=== PATIENT | male | born 1940 | race Caucasian/White ===

== ENCOUNTER 2017-09-26 09:12 | Emergency (ER) | payer OTHER ==
[~2017-09-26] VITALS: Ht 182.9 cm; Wt 86.2 kg
--- NOTE | 2017-09-26 09:30 | NUR ---
PT BIBRA FOR AUTO VS PEDS. DENIES KO, LOC. VSS. PT [id number]. REPORTS KNEE PAIN, NOTED SCRAPE. MD AT BS FOR EVAL. SAFETY AND COMFORT MEASURES PROVIDED. WILL MONITOR.
[2017-09-26] MEDS ORDERED: LEVO137T2 PO (09:48)
[2017-09-26] MEDS ORDERED: EZET10TA14 PO (09:48)
[2017-09-26] MEDS ORDERED: LITH300T3 PO (09:48)
[2017-09-26] MEDS ORDERED: ALPR0.255 PO ×2 (09:48)
[2017-09-26] MEDS ORDERED: PRAV10TA40 PO (09:48)
[2017-09-26] MEDS ORDERED: PROP40TA7 PO (09:48)
[2017-09-26] MEDS ORDERED: QUET25TA PO (09:48)
[2017-09-26] MEDS ORDERED: LAMO150T PO (09:48)
[2017-09-26] MEDS ORDERED: QUET300T2 PO (09:48)
--- NOTE | 2017-09-26 10:55 | NUR ---
AT AND SPOKE TO PT'S SON OVER THE PHONE TO DISCUSS TESTS DONE AND DISCHARGE INSTRUCTIONS TO PT.
--- NOTE | 2017-09-26 10:56 | NUR ---
Patient discharged to home in stable condition. Written and verbal after care instructions given. Patient verbalizes understanding of instruction.
[2017-09-26 11:14] VITALS: BP 125/81
== END 2017-09-26 11:15 | disposition home or self-care (01) ==
LOC: ER 09:19
DX: S80.02XA Contusion of left knee, initial encounter (principal); I10 Essential (primary) hypertension; V89.2XXA Person injured in unspecified motor-vehicle accident, traffic, initial encounter; Y93.01 Activity, walking, marching and hiking; Y92.410 Unspecified street and highway as the place of occurrence of the external cause; Y99.8 Other external cause status
CPT/HCPCS: 71045; 93005; 99284; A4606; Z7610

== ENCOUNTER 2020-08-19 02:27 | Inpatient (IN) | payer MEDICARE, BC ==
[~2020-08-19] VITALS: Ht 175.3 cm; Wt 90.7 kg
[2020-08-19] VITALS (58 sets, daily range): BP systolic 67–134; BP diastolic 26–89
[~2020-08-19 02:27] MED LIST: ALPR0.255 PO; EZET10TA6 PO; LAMO150T6 PO; LEVO137T2 PO; LITH300T3 PO; PRAV10TA40 PO; PROP40TA7 PO; QUET25TA PO; QUET300T2 PO
--- NOTE | 2020-08-19 02:37 | NUR ---
Patient came to the ER [id number] from home c/o SOB with 84% on RA at home. Patient was placed on a NRB at 15% O2 saturation upon arrival at 99%. Patient has hx of Spine and Lung cancer. Patient was somnolent upon arrival. Patient was given narcan 2mg IV and was more awake than usual. Patient is able to state name and is able to answer questions. Patient is connected to the athletic monitor. Patient is provided with call light that is within reach. Will continue to monitor the patient closely.
--- NOTE | 2020-08-19 02:43 | NUR ---
Blood is collected and sent to the lab.
[2020-08-19] MEDS ORDERED: DEUT6TAB PO (02:44)
[2020-08-19] MEDS ORDERED: SERT50TA PO (02:44)
[2020-08-19] MEDS ORDERED: QUET100T PO (02:44)
[2020-08-19] MEDS ORDERED: NALOXONE PREFILLED SYRINGE 2 MG/2 ML SYRINGE ONE (02:44)
[2020-08-19] MEDS ORDERED: CLON0.5T PO (02:44)
[2020-08-19] MEDS ORDERED: PROP80CA51 PO (02:44)
[2020-08-19] MEDS ORDERED: MIRT-119 PO (02:44)
--- NOTE | 2020-08-19 02:45 | NUR ---
X-ray at bedside.
[2020-08-19] MEDS ORDERED: ONDANSETRON HCL/PF 4 MG/2 ML VIAL ONE (02:46)
--- NOTE | 2020-08-19 02:50 | NUR ---
Covid swab rapid and PCR collected and sent to the lab.
[2020-08-19] MEDS ORDERED: ONDANSETRON HCL/PF 4 MG/2 ML VIAL IV ONE (03:00)
[2020-08-19] MEDS ORDERED: IV NS 0.9% 1,000 ML BAG IV ONE ×2 (03:00→04:30)
[2020-08-19] MEDS ORDERED: NALOXONE PREFILLED SYRINGE 2 MG/2 ML SYRINGE IV ONE (03:00)
[2020-08-19 03:09] LABS: EOSINOPHILS % (AUTO) 6.7 % (0.0-6.0); HEMATOCRIT 35 % (39-51); LYMPHOCYTES # (AUTO) 0.1 K/uL (0.8-4.8); LYMPHOCYTES % (AUTO) 42.8 % (20.0-44.0); MEAN CORPUSCULAR HGB CONC 35 g/dl (31.0-36.0); MEAN CORPUSCULAR VOLUME 94 fL (80-96); MONOCYTES # (AUTO) 0.1 K/uL (0.1-1.30); MONOCYTES % (AUTO) 37.2 % (2.0-12.0); NEUTROPHILS % (AUTO) 13.3 % (43.0-81.0); RED BLOOD CELL COUNT(AUTO) 3.66 MIL/uL (4.5-6.0)
[2020-08-19] MEDS ORDERED: IV NS 0.9% 250 ML IV ONE (03:12)
[2020-08-19] MEDS ORDERED: IOHEXOL-350 100 ML VIAL IV ONE (03:12)
[2020-08-19 03:15] LABS: CALCIUM, SERUM 8.6 mg/dL (8.5-10.1); CARBON DIOXIDE 25 mmol/L (21-32); CHLORIDE 99 mmol/L (98-107); CREATININE 2.2 mg/dL (0.6-1.3); GLUCOSE 105 mg/dL (74-106); SODIUM SERUM 131 mmol/L (136-145); UREA NITROGEN, BLOOD 45 mg/dL (7-18)
[2020-08-19 03:24] LABS: WHITE BLOOD COUNT (AUTO) 0.2 K/uL (4.3-11.0)
[2020-08-19 03:25] LABS: ALCOHOL, BLOOD 1 mg/dL (0-0)
[2020-08-19] MEDS ORDERED: CALCIUM CHLORIDE 1,000 MG/10 ML DISP.SYRIN ONE (03:25)
[2020-08-19] MEDS ORDERED: DEXTROSE 50%-WATER 50 ML DISP.SYRIN ONE ×2 (03:25→04:29)
[2020-08-19] MEDS ORDERED: SODIUM BICARBONATE SYR 50 MEQ/50 ML DISP.SYRIN ONE (03:25)
[2020-08-19 03:26] LABS: ACETAMINOPHEN < 0 ug/ml (10-30)
[2020-08-19] MEDS ORDERED: INSULIN REGULAR, HUMAN 100 UNIT/ML 10 ML VIAL ONE (03:26)
[2020-08-19 03:30] LABS: ALANINE AMINOTRANSFERASE 47 U/L (12-78); ALBUMIN 2.9 g/dL (3.4-5.0); ALKALINE PHOSPHATASE 65 U/L (46-116); ASPARTATE AMINOTRANSFERASE 40 U/L (15-37); BILIRUBIN,DIRECT 2.9 mg/dL (0.0-0.2); BILIRUBIN,TOTAL 3.7 mg/dL (0.2-1.0); TOTAL PROTEIN, SERUM 6.6 g/dL (6.4-8.2)
[2020-08-19] MEDS ORDERED: SODIUM BICARBONATE SYR 50 MEQ/50 ML DISP.SYRIN IV ONE (03:30)
[2020-08-19] MEDS ORDERED: INSULIN REGULAR, HUMAN 100 UNIT/ML 10 ML VIAL IV ONE (03:30)
[2020-08-19] MEDS ORDERED: DEXTROSE 50%-WATER 50 ML DISP.SYRIN IV ONE (03:30)
[2020-08-19] MEDS ORDERED: ALBUTEROL FS 2.5 MG/3 ML VIAL.NEB NEB ONE (03:30)
[2020-08-19] MEDS ORDERED: CALCIUM CHLORIDE 1,000 MG/10 ML DISP.SYRIN IV ONE (03:30)
[2020-08-19] MEDS ORDERED: LIDOCAINE 2% JEL UROJET 10 ML MM ONE (03:34)
--- NOTE | 2020-08-19 03:35 | NUR ---
BROUGHT TO CT
[2020-08-19 03:48] LABS: PLATELET COUNT (AUTO) 10 K/uL (150-450)
--- NOTE | 2020-08-19 03:58 | NUR ---
Urine collected and sent to the Lab.
[2020-08-19] MEDS ORDERED: ALBUTEROL FS 2.5 MG/3 ML VIAL.NEB ONE (04:02)
--- NOTE | 2020-08-19 04:02 | NUR ---
rt at bedside for Breathing treatment
[2020-08-19 04:13] LABS: BILIRUBIN,URINE MODERATE (NEGATIVE); COLOR,URINE AMBER (YELLOW); LEUKOCYTE ESTERASE ,URINE Negative (NEGATIVE); NITRITE, URINE Negative (NEGATIVE); PROTEIN,URINE 100 mg/dl (NEGATIVE); UGLUCOSE Negative (NEGATIVE)
--- NOTE | 2020-08-19 04:14 | NUR ---
Finished with breathing Treatment. Patient is placed back on 15L Nonrebreather will titrate soon
--- NOTE | 2020-08-19 04:25 | NUR ---
Patient placed on 8L Simple Facemask .
[2020-08-19] MEDS ORDERED: DEXTROSE 50%-WATER 50 ML DISP.SYRIN IVP ONE (04:30)
[2020-08-19] MEDS ORDERED: VANCOMYCIN 1 GM in IV D5W 250 ML IV ONE (04:30)
[2020-08-19] MEDS ORDERED: PIPERACILLIN /TAZOBACTAM 3.375 G in IV D5W 50 ML IV ONE (04:30)
--- NOTE | 2020-08-19 04:31 | NUR ---
Dr. Michelle on Phone with Dr. Up.
--- NOTE | 2020-08-19 04:51 | NUR ---
Attempted to Call for report, nurse is currently busy, will call back.
--- NOTE | 2020-08-19 05:00 | NUR ---
Report given to Fabi VILLA for marcel.
--- NOTE | 2020-08-19 05:13 | NUR ---
Patient taken up to assigned room by ACLS protocol for MALORIE.
[2020-08-19 05:19] LABS: BACTERIA,URINE None seen /HPF (None Seen); MUCUS,URINE Moderate /LPF (None Seen); SQUAMOUS EPITHELIAL CELL,UR Moderate /HPF (None Seen)
[2020-08-19 06:02] LABS: EOSINOPHILS % (MANUAL) 6 % (0-4); LYMPHOCYTES % (MANUAL) 44 % (16-48); MONOCYTES % (MANUAL) 37 % (0-11.0); NEUTROPHILS % (MANUAL) 13 (42-76)
[2020-08-19] MEDS ORDERED: VANCOMYCIN 1 GM VIAL ONE (06:09)
[2020-08-19] MEDS ORDERED: PIPERACILLIN /TAZOBACTAM 3.375 G VIAL IV ONE (06:10)
[2020-08-19] MEDS ORDERED: Z GUARD REMEDY 2 OZ OINT TP PRN (06:30)
[2020-08-19] MEDS ORDERED: MAGNESIUM HYDROXIDE 30 ML UDC PO PRN (06:30)
[2020-08-19] MEDS ORDERED: ONDANSETRON HCL/PF 4 MG/2 ML VIAL IVP PRN (06:30)
[2020-08-19] MEDS ORDERED: ZOLPIDEM TARTRATE 5 MG TABLET PO PRN (06:30)
[2020-08-19] MEDS ORDERED: SODIUM POLYSTYRENE SULFONATE 15 G/60 ML BOTTLE PO ONE (06:30)
[2020-08-19] MEDS ORDERED: MAG HYDROX/AL HYDROX/SIMETH 30 ML UDC PO PRN (06:30)
--- NOTE | 2020-08-19 07:00 | NUR ---
RN NOTES 0505 ADMITTED PT WITH DX OF RESP FAILURE AND PNA. PT ABLE TO OPEN EYES AND ABLE TO SAY HIS NAME AND ONE WORD A TIME, AND GOES BACK TO SLEEP. PUT ON 10L SIMPLE MASK SAT AT 98 %. NO SIGNS OF DISTRESS NOTED. HOOKED TO TELE MONITOR SR WITH BBB. IV ON LAC AND RAC PATENT AND INTACT, PT WITH PORTACATH ON BENITA WITH BRUISES ON ARM. PT WITH ABRASION ON HEAD AND LEFT KNEE. ALL DUE ATB ZOSYN AND VANCOMYCIN GIVEN ORDERED. CALLED PHARMACY FOR KAYEXALATE. ALL SAFETY MEASURES IN PLACE. WILL ENDORSE TO NEXT SHIFT NURSE FOR MALORIE.
[2020-08-19] MEDS ORDERED: PANTOPRAZOLE 40 MG TABLET.DR PO SCH (07:30)
[2020-08-19 07:34] LABS: ABG BASE EXCESS -1.1 mmol/L; ABG PCO2 52.7 mmHg (35.0-45.0); ABG PH 7.307 (7.350-7.450); ABG PO2 226.2 mmHg (75.0-100.0); AaDO2 434.1 mmHg; MetHb 0.3 % (0.0-1.5); O2Hb 98.7 % (94.0-97.0); SITE, ABG Right Radial; VENT MODE, BG non rebreather
--- NOTE | 2020-08-19 07:55 | NUR ---
RN NOTES PATIENT GET TRANSFERRED FROM [facility] ACCORDING ABG RESULT CO2-50.7, PATIENT NON -REBREATHER MASK 15L. TELE MONITOR ON, PATIENT UNCONSCIOUS, ONLY OPENING EYES. O2-86%, BEDSIDE MONITOR SHOWING SR, BBB, P WAVE NICHES, AND PVC. PATIENT HAS PORT- A-CATH ON RIGHT UA, STARTED NS BOLUS 1000 ML. PATIENT SEEN VIA DR BAZAN AND ORDER BIPAP. RT NOTIFIED. LAB RESULT MD AWARE OF, ALSO SEEN VIA FRAME AND SCRAP CRUSHER. GET ORDER ANTOINE CATHETER INSERTION. WILL MONITORING.
--- NOTE | 2020-08-19 07:58 | NUR ---
pulmonary asset protection representative made aware of codition.
[2020-08-19] MEDS ORDERED: IV NS 0.9% 1,000 ML IV PRN (08:00)
[2020-08-19] MEDS ORDERED: IV NS 0.9% 1,000 ML IV ONE ×2 (08:00→09:30)
--- NOTE | 2020-08-19 08:15 | NUR ---
Transferred patient to ICU 257. Received patient in shift report O2 saturation at 70-75% on simple mask 10L noted with shallow breathing. Patient responded to pain wakes up and grunts. Changed to non rebreather mask 15L sat 86%. ABG done RT recommended bipap. Gave bedside report to Boogie. Called [facility] the to inform and left message to Darren, the son.
--- NOTE | 2020-08-19 09:00 | NUR ---
RN NOTES SEEN PATIENT VIA HOSPITALIST Dr MABRY, ANTOINE INSERTED, PATIENT ON BIPAP AT THIS TIME.
--- NOTE | 2020-08-19 09:33 | NUR ---
RN NOTES ABG DONE AFTER ONE HR POST UP, RESULT NOTIFIED HOSPITALIST, PATIENT GETTING ECHO BEDSIDE, AND CHEST X-RAY. ADMINISTERED SCHEDULED MEDICATION.
[2020-08-19] MEDS: PANTOPRAZOLE 40 MG VIAL IV SCH (10:08)
[2020-08-19] MEDS: IV D5/ 0.9% NACL 1,000 ML IV PRN (10:20)
[2020-08-19] MEDS: PIPERACILLIN /TAZOBACTAM 3.375 G in IV D5W 100 ML IV SCH ×2 (10:31→17:13)
[2020-08-19 10:51] LABS: ABG BASE EXCESS -0.1 mmol/L; ABG OXYGEN SATURATION 94.8 % (92.0-98.5); ABG PCO2 41.4 mmHg (35.0-45.0); ABG PH 7.395 (7.350-7.450); ABG PO2 77.9 mmHg (75.0-100.0); AaDO2 159.7 mmHg; COHb 0.3 % (0.5-1.5); MetHb 0.5 % (0.0-1.5); SITE, ABG Left Brachial; VENT MODE, BG BIPAP 15/5
[2020-08-19 12:17] LABS: CALCIUM, SERUM 8.4 mg/dL (8.5-10.1); CARBON DIOXIDE 27 mmol/L (21-32); CHLORIDE 102 mmol/L (98-107); CREATININE 2.1 mg/dL (0.6-1.3); GLUCOSE 86 mg/dL (74-106); LIPASE 20 U/L (73-393); SODIUM SERUM 135 mmol/L (136-145); UREA NITROGEN, BLOOD 46 mg/dL (7-18)
--- NOTE | 2020-08-19 12:50 | NUR ---
RN NOTES GET CALL FROM LAB LACTIC ACID 2.7. NOTIFIED HOSPITALIST Dr MABRY, NO NEW ORDER, ALSO GET TO ORDER LEVOPHED INFUSION BECAUSE OF LOW BP 82/48. ORDER TAKEN AND CARRIED OUT.
--- NOTE | 2020-08-19 12:58 | NUR ---
RN NOTES PATIENT AWAKE AT THIS TIME. PATIENT TRIAL METHOD, PLACED SIMV MOD. VSS. WILL MONITORING Addendum: 08/19/20 at 1853 by IBRAHIMA MEEHAN RN above notes wrong entry.
[2020-08-19] MEDS: NOREPINEPHRINE 8 MG in IV NS 0.9% 242 ML IV PRN ×3 (13:22→21:43)
[2020-08-19] MEDS: AZITHROMYCIN 500 MG in IV D5W 250 ML IV SCH (13:44)
[2020-08-19] MEDS: ALBUTEROL FS 2.5 MG/0.5 ML VIAL.NEB NEB SCH ×2 (14:09→20:22)
[2020-08-19] MEDS: IPRATROPIUM NEB FS 0.5 MG/2.5 ML AMPUL.NEB NEB SCH ×2 (14:09→20:22)
[2020-08-19] MEDS: ACETAMINOPHEN 650 MG/SUPP.RECT RC PRN (14:11)
--- NOTE | 2020-08-19 14:11 | NUR ---
rn notes administered rectal suppository Tylenol 650mg, t-104.8 F, and cooling measure.
[2020-08-19 17:02] LABS: URIC ACID 4.4 mg/dL (2.6-7.2)
[2020-08-19 18:03] LABS: PHOSPHORUS 4.1 mg/dL (2.5-4.9)
--- NOTE | 2020-08-19 18:30 | NUR ---
RN NOTES PATIENT ON BIPAP TRYING TO REMOVE, CALLED Dr WAN FOR ORDERS. PATIENT T-102.4 F AT THIS TIME WITH COOLING MEASURE. INFUSING DIPRIVAN 0.2MCG/KG/HR, ZOSYN 25MG/ EXTENDED DOSE AND D5NS AT 80 ML/HR ON RIGHT PERM-A-CATH INTACT. ANTOINE DRAINING VIA GRAVITY. CALL LIGHT WITHIN TO REACH. PATIENT SON TAKE PATIENTS BELONGING HOME , AND SIGNED BELONGING LIST. ENDORSED ONCOMING NURSE FOLLOW PLAN OF CARE.
--- NOTE | 2020-08-19 20:00 | NUR ---
RN NOTE RECEIVED PT IN BED AWAKE ON BIPAP SATING 94%, PT IS ABLE TO COMMUNICATE WITH NODING HIS HEAD.PT IS ON LEVOPHED RUNNING AT 0.2MCG/KG/MIN ON R UPPER ARM DON CATH.
[2020-08-19] MEDS: LORAZEPAM INJ 2 MG/ML VIAL IV PRN (20:02)
[2020-08-19] MEDS ORDERED: TBO-FILGRASTIM 480 MCG/0.8 ML ML SQ SCH (20:30)
[2020-08-19] MEDS ORDERED: diphenhydrAMINE HCL 50 MG/ML VIAL IV ONE (20:30)
[2020-08-19] MEDS ORDERED: ACETAMINOPHEN 325 MG TABLET PO ONE (20:30)
[2020-08-19 20:58] LABS: ABG BASE EXCESS -6.1 mmol/L; ABG OXYGEN SATURATION 97.1 % (92.0-98.5); ABG PCO2 89.3 mmHg (35.0-45.0); ABG PH 7.076 (7.350-7.450); ABG PO2 132.4 mmHg (75.0-100.0); AaDO2 491.3 mmHg; COHb 0.1 % (0.5-1.5); MetHb 0.4 % (0.0-1.5); O2Hb 96.6 % (94.0-97.0); SITE, ABG Left Radial
[2020-08-19] MEDS ORDERED: ACETAMINOPHEN 650 MG/SUPP.RECT RC PRN (21:00)
--- NOTE | 2020-08-19 21:24 | NUR ---
RT NOTE PATIENT INTUBATED WITH 7.5ETT @22CM LIPLINE. EQUAL BILATERAL CHEST RISE WITH COLOR CHANGE ON CO2 MONITOR. VENT SETTINGS CHARTED PER ER MD. VENT PLUG IN RED OUTLET. ALARMS ON AND AUDIBLE. ETT PATENT AND SECURED. WILL DRAW ABG IN 1HR. PT STABLE AND WILL CONTINUE TO MONITOR.
[2020-08-19] MEDS ORDERED: NOREPINEPHRINE 8MG/250ML RTU 250 ML IV ONE (21:36)
[2020-08-19] MEDS: PROPOFOL 100 ML IV PRN (21:42)
[2020-08-19] MEDS ORDERED: MEROPENEM 500 MG in IV NS 0.9% 50 ML IV SCH (22:00)
[2020-08-19] MEDS ORDERED: MEROPENEM 500 MG VIAL IV ONE (22:06)
[2020-08-19] MEDS ORDERED: MEROPENEM 500 MG in IV NS 0.9% 50 ML IV ONE (22:30)
[2020-08-19 22:50] LABS: ABG BASE EXCESS -3.6 mmol/L; ABG OXYGEN SATURATION 97.7 % (92.0-98.5); ABG PCO2 39.3 mmHg (35.0-45.0); ABG PH 7.357 (7.350-7.450); ABG PO2 107.7 mmHg (75.0-100.0); COHb 0.3 % (0.5-1.5); MetHb 0.5 % (0.0-1.5); O2Hb 96.9 % (94.0-97.0); SITE, ABG Left Radial
--- NOTE | 2020-08-19 23:00 | NUR ---
RN NOTE PT WAS DESATURATING ,O2 SAT IN LOW 80s pt is lethargic STAT ABG DONE, SEVERE RESPIRATORY ACIDOSIS. DR WAN NOTIFIED AND GIVE ORDER TO INTUBATE THE PT.ER DR INTUBATED THE PT AT 2114. STAT CXR DONE,ABG REPEATED AN HOUR AFTER.SON WAS NOTIFIED FOR STARTING INTUBATION HE AGREED TO INTUBATE THE PT.STARTED PROPOFOL DRIP PER DR ORDER, LEVO TITRATED TO KEEP SBP ABOVE 90.
[2020-08-19] MEDS ORDERED: FLUCONAZOLE IN NS 100 ML IV ONE (23:08)
[2020-08-19] MEDS: FLUCONAZOLE IN NS 100 MG in PREMIX 1 EA IV SCH (23:23)
[2020-08-20] VITALS (60 sets, daily range): BP systolic 82–149; BP diastolic 5–66
[2020-08-20] MEDS: IV D5/ 0.9% NACL 1,000 ML IV PRN ×2 (00:11→13:17)
[2020-08-20] MEDS: ACETAMINOPHEN 650 MG/SUPP.RECT RC PRN ×3 (00:39→23:34)
[2020-08-20] MEDS ORDERED: NOREPINEPHRINE 4 MG/4 ML AMPUL IV ONE (01:36)
[2020-08-20] MEDS: NOREPINEPHRINE 8 MG in IV NS 0.9% 242 ML IV PRN ×4 (01:42→19:21)
[2020-08-20] MEDS: IPRATROPIUM NEB FS 0.5 MG/2.5 ML AMPUL.NEB NEB SCH ×4 (01:47→19:43)
[2020-08-20] MEDS: ALBUTEROL FS 2.5 MG/0.5 ML VIAL.NEB NEB SCH ×4 (01:47→19:43)
[2020-08-20] MEDS: LORAZEPAM INJ 2 MG/ML VIAL IV PRN (03:12)
[2020-08-20] MEDS: PROPOFOL 100 ML IV PRN ×3 (04:02→19:20)
[2020-08-20 05:15] LABS: HEMATOCRIT 30 % (39-51); HEMOGLOBIN 10.4 g/dL (13.5-17.5); LYMPHOCYTES % (AUTO) 33.3 % (20.0-44.0); MEAN CORPUSCULAR HGB CONC 35 g/dl (31.0-36.0); MEAN CORPUSCULAR VOLUME 95 fL (80-96); MONOCYTES % (AUTO) 39.2 % (2.0-12.0); NEUTROPHILS % (AUTO) 15.5 % (43.0-81.0); RED BLOOD CELL COUNT(AUTO) 3.16 MIL/uL (4.5-6.0)
[2020-08-20 05:20] LABS: PLATELET COUNT (AUTO) 7 K/uL (150-450); WHITE BLOOD COUNT (AUTO) 0.1 K/uL (4.3-11.0)
[2020-08-20] MEDS: VANCOMYCIN 1 GM in IV D5W 250 ML IV SCH (05:28)
[2020-08-20 05:52] LABS: PROSTATE SPECIFIC ANTIGEN SCR 80.63 ng/mL (0.00-4.00)
[2020-08-20 06:02] LABS: CHOLESTEROL 61 mg/dL (<200); LDL 10 mg/dL (0-99); THYROID STIMULATING HORMONE 0.445 uIU/mL (0.358-3.74); TRIGLYCERIDES 322 mg/dL (30-150)
[2020-08-20 06:03] LABS: CALCIUM, SERUM 7.9 mg/dL (8.5-10.1); CARBON DIOXIDE 24 mmol/L (21-32); CHLORIDE 105 mmol/L (98-107); CREATININE 2.3 mg/dL (0.6-1.3); GLUCOSE 110 mg/dL (74-106); PHOSPHORUS 5.2 mg/dL (2.5-4.9); POTASSIUM 4.5 mmol/L (3.5-5.1); SODIUM SERUM 138 mmol/L (136-145); UREA NITROGEN, BLOOD 55 mg/dL (7-18)
[2020-08-20 06:04] LABS: HDL CHOLESTEROL < 10 mg/dL (40-60)
--- NOTE | 2020-08-20 07:23 | NUR ---
RN NOTE REPORT GIVEN TO ONCOMING SHIFT FOR MALORIE.
[2020-08-20] MEDS: TBO-FILGRASTIM 480 MCG/0.8 ML ML SQ SCH (07:43)
[2020-08-20] MEDS: MEROPENEM 500 MG in IV NS 0.9% 100 ML IV SCH ×3 (07:58→21:00)
--- NOTE | 2020-08-20 08:00 | NUR ---
rn notes RECEIVED PATIENT EET/VENT SETTING, FIO2-60, PEEP-0, NO ACUTE RESPIRATORY DISTRESS. BEDSIDE MONITOR GET ORDER NGT INSERTION, AND PUT CHEST R X-RAY FOR PLACEMENT. PATIENT SEDATED DIPRIVAN 20MCG/KG/HR, LEVOPHED 0.4MCG/KG/HR, [id number]/HR, AND MERREM 33.33 EXTENDED DOSE. RESTRAIN INTACT CHECKED FOR CIRCULATION, . PATIENT T- 100F WITH COOLING MEASURE. ANTOINE DRAINING VIA GRAVITY. SEEN HOSPITALIST DR MABRY, AND PULMONALIS MARCUS. WILL MONITORING.
--- NOTE | 2020-08-20 08:05 | NUR ---
rn notes called laboratory to get platelet, according blood bank they are not have it now , ordered stat, and will get from [facility]. As soon as they get platelet , will call to pickling solution maker. will following up.
--- NOTE | 2020-08-20 08:10 | NUR ---
RN NOTES PATIENT HAS ST-116, BBB, TRIGEMINY, QUADRIGEMINY, AND PVC. ENERGY AUDIT ADVISOR Dr BAZAN AWARE OF. NEW ORDER IS MONITORING.
[2020-08-20 08:15] LABS: IRON, SERUM 25 ug/dl (50-175); TOTAL IRON BINDING CAPACITY 133 ug/dl (250-450)
[2020-08-20 08:21] LABS: ABG BASE EXCESS -6.3 mmol/L; ABG OXYGEN SATURATION 90.8 % (92.0-98.5); ABG PCO2 39.4 mmHg (35.0-45.0); ABG PH 7.311 (7.350-7.450); ABG PO2 62.7 mmHg (75.0-100.0); AaDO2 321.8 mmHg; COHb 0.1 % (0.5-1.5); MetHb 0.2 % (0.0-1.5); O2Hb 90.5 % (94.0-97.0); SITE, ABG Right Radial
--- NOTE | 2020-08-20 08:39 | NUR ---
RN NOTES RESPIRATORY COLLECTED SPUTUM SPECIMEN FOR FUNGAL , CALLED LAB TECHNICAL TRAINING SPECIALIST.
[2020-08-20] MEDS ORDERED: SUCCINYLCHOLINE CHLORIDE 20 MG/ML VIAL IV ONE (08:42)
[2020-08-20] MEDS ORDERED: FLUDROCORTISONE 0.1 MG TABLET NG PRN (09:00)
[2020-08-20] MEDS: PANTOPRAZOLE 40 MG VIAL IV SCH (09:26)
[2020-08-20] MEDS: HYDROCORTISONE SOD SUCCINATE 100 MG/2 ML VIAL IV SCH ×3 (09:27→21:41)
[2020-08-20 09:36] LABS: C-REACTIVE PROTEIN 43.5 mg/dL (0.0-0.9)
--- NOTE | 2020-08-20 09:51 | NUR ---
RN NOTES UA SPECIMEN COLLECTED FROM ANTOINE CATH PORT, CALLED LAB PIC UP.
[2020-08-20 10:02] LABS: FERRITIN 7998 ng/mL (8-388)
[2020-08-20] MEDS: AZITHROMYCIN 500 MG in IV D5W 250 ML IV SCH (10:27)
[2020-08-20 11:21] LABS: BILIRUBIN,URINE SMALL (NEGATIVE); COLOR,URINE DARK YELLOW (YELLOW); LEUKOCYTE ESTERASE ,URINE NEGATIVE (NEGATIVE); NITRITE, URINE NEGATIVE (NEGATIVE); PROTEIN,URINE 30 mg/dl (NEGATIVE); UGLUCOSE NEGATIVE (NEGATIVE)
[2020-08-20 11:34] LABS: CREATININE, URINE 58.2 MG/DL (30.0-125.0); URINE TOTAL PROTEIN 102.9 mg/dL (0-11.9)
[2020-08-20 12:11] LABS: RBC,URINE 81-100 /HPF (0-2)
[2020-08-20 12:12] LABS: BACTERIA,URINE Few /HPF (None Seen); WBC,URINE 0-3 /HPF (0-3)
[2020-08-20 12:14] LABS: SQUAMOUS EPITHELIAL CELL,UR Rare /HPF (None Seen)
[2020-08-20 12:15] LABS: COARSE GRANULAR CASTS,URINE Few /LPF (None Seen)
--- NOTE | 2020-08-20 12:36 | NUR ---
CANCELED US ABDOMEN COMPLETE, EXAM WAS PERFORMED YESTERDAY AT 11.10 AM, PATIENT HAS CHOLECYSTECTOMY
[2020-08-20 12:56] LABS: EOSINOPHIL,URINE None Seen
--- NOTE | 2020-08-20 13:30 | NUR ---
rn notes There is interval placement of an endotracheal tube which terminates 4 cm above the wallace. Nasogastric tube extends in the stomach. Right arm PICC line remains in good position There is ongoing mild degree CHF. Increasing ground-glass densities noted throughout the left lung likely representing enlarging posterior layering left pleural effusion 1. Endotracheal tube, nasogastric tube, right arm PICC line remain in good position.
[2020-08-20] MEDS: LEVOTHYROXINE SODIUM 137 MCG TABLET PO SCH (13:51)
--- NOTE | 2020-08-20 17:14 | NUR ---
RN NOTES STARTED BLOOD PLATELET TRANSFUSION AT HIS TIME 416ML. PATIENT T-98.8 RECTAL, P-114, R- 20, BP 98/58, O2-96. INFUSING 60ML/HR ON RIGHT DON CATH INTACT. PATIENT INTUBATED, NO ACUTE RESPIRATORY DISTRESS. WILL MONITORING. SON NEXT TO THE BED.
--- NOTE | 2020-08-20 17:30 | NUR ---
RN NOTES PATIENT STABLE, NO ACUTE RESPIRATORY DISTRESS, T-98.9, P-115,R-21,BP-104/63, O2-95. INCREASED INFUSION 120 ML/HR. WILL MONITORING.
--- NOTE | 2020-08-20 18:00 | NUR ---
RN NOTES PATIENT STABLE NO ACUTE RESPIRATORY DISTRESS, CONTINUING PLATELET INFUSION 120ML/HR INTACT ON RIGHT PORT-A-CATH, T-99, P-116, R-20, BP 109/61.WILL MONITORING.
--- NOTE | 2020-08-20 18:55 | NUR ---
RN NOTES PATIENT PM CARE DONE, SUCTION, MOUTH CARE DONE, INFUSING PLATELET 220 ML/HR AT THIS TIME, DIPRIVAN 20 MCG/KG/HR, LEVOPHED 0.2 MCG/KG/HR, AND D5NS @80ML/HR ON. MIDLINE ON LEFT UA INTACT, AND PORT-A-CAT INTACT. PATIENT HAS NO ACUTE RESPIRATORY DISTRESS. ANTOINE DRAINING DARK YELLOW OUTPUT 1100ML. ASSIST TURN AND REPOSTION Q 2 HR. SEEN PATIENT VIA ID NERA CANDLEMAKER, NOTIFIED TEMPERATURE INCREASED 99.2 F. ENDORSED ONCOMING NURSE FOLLOW PLAN OF CARE.
--- NOTE | 2020-08-20 19:30 | NUR ---
LEARNING COACH RCD PT W/DX RESP FAIL, PNA. PT IS FULL CODE. INTUBATED 7.5 @ 22 W/VENT SETTINGS AC 18 500 80%; RENDERED ORAL CARE PT HAS THICK WHITE SECRETIONS. ST ON MONITOR. NG TUBE CLAMPED. NPO AT THIS TIME. PLATELETS TRANSFUSING. D5NS@80 ML/HR VIA BENITA PORTACATH. AND PROPOFOL AT 20 MCG/KG/MIN.
--- NOTE | 2020-08-20 20:00 | NUR ---
CUT OFF MACHINE OPERATOR PTS DAUGHTER AT BEDSIDE; UPDATED ON PLAN OF CARE. DAUGHTER WAS UNDER THE IMPRESSION PT WOULD BE EXTUBATED AFTER PLATELET INFUSION. NO ORDER FOR WEANING/EXTUBATION AT THIS TIME.
--- NOTE | 2020-08-20 20:30 | NUR ---
CAREER EDUCATION TEACHER TITRATED LEVOPHED OFF FOR BP 149/63
[2020-08-20] MEDS: IV NS 0.9% 250 ML IV PRN (21:00)
--- NOTE | 2020-08-20 21:00 | NUR ---
MOTOR ASSEMBLER RCD CALL FROM PTS SON CASEY IBARRA. UPDATED ON PLAN OF CARE. SON ASKED FOR MDS TO CALL HIM AND UPDATE HIM IN PLAN OF CARE ALSO ASKED HE BE CALLED IF THERE IS ANY CHANGE IN CONDITION.
[2020-08-20] MEDS: FLUCONAZOLE IN NS 100 MG in PREMIX 1 EA IV SCH (22:00)
[2020-08-20 23:20] LABS: MONOCYTES # (AUTO) 0.1 K/uL (0.1-1.30); NEUTROPHILS # (AUTO) 0.1 K/uL (1.8-8.9)
[2020-08-20 23:26] LABS: BASOPHILS % (AUTO) 0.6 % (0.0-2.0); EOSINOPHILS % (AUTO) 1.7 % (0.0-6.0); HEMATOCRIT 27 % (39-51); HEMOGLOBIN 9.7 g/dL (13.5-17.5); MEAN CORPUSCULAR HGB CONC 35 g/dl (31.0-36.0); MEAN CORPUSCULAR VOLUME 95 fL (80-96); MONOCYTES % (AUTO) 34.2 % (2.0-12.0); NEUTROPHILS % (AUTO) 45.5 % (43.0-81.0); RED BLOOD CELL COUNT(AUTO) 2.87 MIL/uL (4.5-6.0)
[2020-08-20 23:28] LABS: PLATELET COUNT (AUTO) 8 K/uL (150-450)
[2020-08-20 23:29] LABS: WHITE BLOOD COUNT (AUTO) 0.2 K/uL (4.3-11.0)
--- NOTE | 2020-08-20 23:34 | NUR ---
HERB COUNSELOR ADMINISTERED TYLENOL CA FOR TEMP 100.9 AND INITIATED COOLING MEASURES.
--- NOTE | 2020-08-20 23:45 | NUR ---
FLASH RANGING CREWMEMBER S/W LAB THEY HAVE ORDERED PLATELETS. WILL TRANSFUSE WHEN AVAILABLE.
[2020-08-21] VITALS (51 sets, daily range): BP systolic 94–166; BP diastolic 42–75
[2020-08-21] MEDS: IPRATROPIUM NEB FS 0.5 MG/2.5 ML AMPUL.NEB NEB SCH ×4 (01:57→19:56)
[2020-08-21] MEDS: ALBUTEROL FS 2.5 MG/0.5 ML VIAL.NEB NEB SCH ×4 (01:57→19:56)
[2020-08-21] MEDS: IV D5/ 0.9% NACL 1,000 ML IV PRN ×2 (02:16→15:15)
[2020-08-21] MEDS: PROPOFOL 100 ML IV PRN (04:45)
[2020-08-21] MEDS: HYDROCORTISONE SOD SUCCINATE 100 MG/2 ML VIAL IV SCH (04:53)
[2020-08-21 05:16] LABS: EOSINOPHILS % (AUTO) 0.9 % (0.0-6.0); HEMATOCRIT 26 % (39-51); HEMOGLOBIN 9.1 g/dL (13.5-17.5); LYMPHOCYTES % (AUTO) 11.3 % (20.0-44.0); MEAN CORPUSCULAR HGB CONC 35 g/dl (31.0-36.0); MEAN CORPUSCULAR VOLUME 95 fL (80-96); MONOCYTES # (AUTO) 0.1 K/uL (0.1-1.30); MONOCYTES % (AUTO) 20.1 % (2.0-12.0); NEUTROPHILS # (AUTO) 0.2 K/uL (1.8-8.9); NEUTROPHILS % (AUTO) 67.7 % (43.0-81.0); RED BLOOD CELL COUNT(AUTO) 2.74 MIL/uL (4.5-6.0)
[2020-08-21 05:18] LABS: PLATELET COUNT (AUTO) 12 K/uL (150-450)
[2020-08-21 05:22] LABS: WHITE BLOOD COUNT (AUTO) 0.3 K/uL (4.3-11.0)
[2020-08-21 05:29] LABS: ALANINE AMINOTRANSFERASE 96 U/L (12-78); ALBUMIN 1.6 g/dL (3.4-5.0); ALKALINE PHOSPHATASE 38 U/L (46-116); ASPARTATE AMINOTRANSFERASE 74 U/L (15-37); BILIRUBIN,TOTAL 3.1 mg/dL (0.2-1.0); CALCIUM, SERUM 7.2 mg/dL (8.5-10.1); CARBON DIOXIDE 26 mmol/L (21-32); CHLORIDE 109 mmol/L (98-107); CREATININE 2.2 mg/dL (0.6-1.3); GLUCOSE 159 mg/dL (74-106); MAGNESIUM 1.8 mg/dL (1.8-2.4); PHOSPHORUS 5.2 mg/dL (2.5-4.9); POTASSIUM 3.9 mmol/L (3.5-5.1); SODIUM SERUM 143 mmol/L (136-145); TOTAL PROTEIN, SERUM 4.9 g/dL (6.4-8.2); UREA NITROGEN, BLOOD 52 mg/dL (7-18)
[2020-08-21] MEDS: VANCOMYCIN 1 GM in IV D5W 250 ML IV SCH (06:00)
[2020-08-21 07:06] LABS: IMMUNOGLOBULIN A, SERUM 9 mg/dL (61-437); IMMUNOGLOBULIN G, SERUM 1160 mg/dL (603-1613); IMMUNOGLOBULIN M, SERUM 88 mg/dL (15-143)
--- NOTE | 2020-08-21 07:15 | NUR ---
CULINARY INTERN RECEIVED PT IN BED. INTUBATED 7.5 @ 22 W/VENT SETTINGS AC 18 500 80%, PEEP 0; ST ON MONITOR. NG TUBE CLAMPED. NPO AT THIS TIME. D5NS@80 ML/HR VIA BENITA PORTACATH. AND PROPOFOL AT 20 MCG/KG/MIN. SAFETY MEASURES IN PLACE, BED IN LOWEST LOCKED POSITION WITH SIDE RAILS UP X2, CALL LIGHT WITHIN REACH, 1 UNIT OF PLATELET ORDERED, AWAITING CALL FROM BLOOD BANK, WILL CONTINUE TO MONITOR.
[2020-08-21 08:05] LABS: ABG BASE EXCESS -4.3 mmol/L; ABG OXYGEN SATURATION 96.5 % (92.0-98.5); ABG PCO2 40.7 mmHg (35.0-45.0); ABG PH 7.335 (7.350-7.450); ABG PO2 93.3 mmHg (75.0-100.0); AaDO2 434.4 mmHg; COHb 0.2 % (0.5-1.5); MetHb 0.3 % (0.0-1.5); SITE, ABG Right Radial
--- NOTE | 2020-08-21 09:00 | NUR ---
[place] PROGRAM COORDINATOR NOTES CALLED PHARMACY REGARDING GRANIX, THEY SAID THEY WILL PROVIDE, AWAITING FOR THE MED.
[2020-08-21] MEDS: MEROPENEM 500 MG in IV NS 0.9% 100 ML IV SCH ×2 (09:02→21:44)
[2020-08-21] MEDS: LEVOTHYROXINE SODIUM 137 MCG TABLET PO SCH (09:02)
[2020-08-21] MEDS: PANTOPRAZOLE 40 MG VIAL IV SCH (09:08)
[2020-08-21] MEDS: TBO-FILGRASTIM 480 MCG/0.8 ML ML SQ SCH (09:27)
[2020-08-21] MEDS: AZITHROMYCIN 500 MG in IV D5W 250 ML IV SCH (11:10)
[2020-08-21 15:06] LABS: *SPE A/G RATIO 0.9 (0.7-1.7); *SPE ALBUMIN 2.1 g/dL (2.9-4.4); *SPE ALPHA-1-GLOBULIN 0.4 g/dL (0.0-0.4); *SPE ALPHA-2-GLOBULIN 0.7 g/dL (0.4-1.0); *SPE BETA GLOBULIN 0.5 g/dL (0.7-1.3); *SPE GLOBULIN, TOTAL 2.4 g/dL (2.2-3.9); *SPE M-SPIKE 0.5 g/dL (Not Observed); *SPEGAMMA GLOBULIN 0.8 g/dL (0.4-1.8)
[2020-08-21] MEDS: IV NS 0.9% 250 ML IV PRN (15:15)
[2020-08-21] MEDS: ACETAMINOPHEN 650 MG/SUPP.RECT RC PRN (16:08)
[2020-08-21 16:57] LABS: D-DIMER 2.53 mg/L(FEU (0.17-0.50)
--- NOTE | 2020-08-21 18:36 | NUR ---
OIL AGENT PT IN BED. INTUBATED 7.5 @ 22 W/VENT SETTINGS AC 18 500 60%, PEEP 0; ST ON MONITOR. NG TUBE CLAMPED. D5NS@80 ML/HR VIA BENITA PORTACATH. S/P 1 BAG OF PLATELET, LATEST PLATELET 15, MD MADE AWARE WITH NNO, ANTOINE CATHETER INTACT AND DRAINING VIA GRAVITY WITH CLEAR YELLOW OUTPUT, SAFETY MEASURES IN PLACE, BED IN LOWEST LOCKED POSITION WITH SIDE RAILS UP X2, CALL LIGHT WITHIN REACH, WILL ENDORSE TO PSYCHOLOGIST EXPERIMENTAL NURSE FOR MALORIE.
--- NOTE | 2020-08-21 19:46 | NUR ---
WEB PRODUCTION ASSISTANT. INITIAL ASSESSMENT. RECEIVED THE PT REST ON THE BED. ORALLY INTUBATED. PT IS VERY LETHARGIC. ETT # 7.5,LIP 22,AC 18,TV 500,FIO2 60%SAT 98%. NO ACUTE DISTRESS NOTED AT THIS TIME. FEBRILE. COOLING BLANKET ON. LT NARE NGT INTACT. RT UPPER ARM DON CATH. LT UPPER ARM MID LINE. IVF D5NS 80ML/H. HOB ELEVATED. FC PATENT. ARON SOFT WRIST RESTRAINT CHECKED AND RELEASED. NO INJURY NOTED. WILL CONTINUE TO MONITOR
--- NOTE | 2020-08-21 21:40 | NUR ---
CHEMICAL PROCESS ANALYST. PT SON AT BED SIDE. UP DATE GIVEN
[2020-08-21] MEDS: FLUCONAZOLE IN NS 100 MG in PREMIX 1 EA IV SCH (21:44)
--- NOTE | 2020-08-21 23:14 | NUR ---
precision agriculture specialist. temperature 100.2. tylenol via ngt given per .
[2020-08-21] MEDS: ACETAMINOPHEN 325 MG TABLET PO PRN (23:51)
[2020-08-22] VITALS (33 sets, daily range): BP systolic 74–158; BP diastolic 36–85
[2020-08-22] MEDS: IV D5/ 0.9% NACL 1,000 ML IV PRN (00:38)
[2020-08-22] MEDS: IPRATROPIUM NEB FS 0.5 MG/2.5 ML AMPUL.NEB NEB SCH ×5 (01:03→20:18)
[2020-08-22] MEDS: ALBUTEROL FS 2.5 MG/0.5 ML VIAL.NEB NEB SCH ×5 (01:03→20:18)
--- NOTE | 2020-08-22 03:41 | NUR ---
CLAIM PROFESSIONAL. AM CARE GIVEN. REMAINING SAME VENT SETTING TOLERATED WELL. SAT 98%. HAM FACER SHOWING S TACH. NGT CLAMPED. REMAINING SAME IVF D5NS @ 80 ML/H. HOB ELEVATED. TURN AND REPOSITION Q2H. ARON SOFT WRIST RESTRAINT CHECKED AND RELEASED. NO INJURY OR REDNESS NOTED. WILL CONTINUE TO MONITOR VITALS
[2020-08-22 04:33] LABS: CALCIUM, SERUM 7.5 mg/dL (8.5-10.1); CARBON DIOXIDE 25 mmol/L (21-32); CHLORIDE 112 mmol/L (98-107); CREATININE 1.7 mg/dL (0.6-1.3); GLUCOSE 136 mg/dL (74-106); POTASSIUM 3.2 mmol/L (3.5-5.1); SODIUM SERUM 147 mmol/L (136-145); UREA NITROGEN, BLOOD 49 mg/dL (7-18)
[2020-08-22 05:01] LABS: BASOPHILS % (AUTO) 0.1 % (0.0-2.0); EOSINOPHILS % (AUTO) 0.2 % (0.0-6.0); HEMATOCRIT 26 % (39-51); HEMOGLOBIN 9.2 g/dL (13.5-17.5); MEAN CORPUSCULAR HGB CONC 35 g/dl (31.0-36.0); MEAN CORPUSCULAR VOLUME 94 fL (80-96); MONOCYTES # (AUTO) 0.1 K/uL (0.1-1.30); MONOCYTES % (AUTO) 3.8 % (2.0-12.0); NEUTROPHILS # (AUTO) 1.6 K/uL (1.8-8.9); NEUTROPHILS % (AUTO) 93.9 % (43.0-81.0); RED BLOOD CELL COUNT(AUTO) 2.76 MIL/uL (4.5-6.0)
[2020-08-22 05:15] LABS: WHITE BLOOD COUNT (AUTO) 1.7 K/uL (4.3-11.0)
[2020-08-22 05:16] LABS: PLATELET COUNT (AUTO) 12 K/uL (150-450)
[2020-08-22 06:09] LABS: LYMPHOCYTES % (MANUAL) 4 % (16-48); MONOCYTES % (MANUAL) 2 % (0-11.0); NEUTROPHILS % (MANUAL) 94 (42-76)
[2020-08-22] MEDS: ACETAMINOPHEN 325 MG TABLET PO PRN (06:50)
[2020-08-22] MEDS: VANCOMYCIN 1.25 GM in IV D5W 250 ML IV SCH (06:50)
[2020-08-22] MEDS: MEROPENEM 500 MG in IV NS 0.9% 100 ML IV SCH ×2 (08:10→21:15)
[2020-08-22] MEDS: LEVOTHYROXINE SODIUM 137 MCG TABLET PO SCH (08:18)
[2020-08-22] MEDS: POTASSIUM CL. PREMIX PERIPHER. 50 ML IV SCH ×4 (08:19→11:52)
[2020-08-22] MEDS: IV D5W 1,000 ML IV PRN (08:24)
[2020-08-22 08:28] LABS: ABG BASE EXCESS -0.7 mmol/L; ABG OXYGEN SATURATION 94.7 % (92.0-98.5); ABG PCO2 31.8 mmHg (35.0-45.0); ABG PH 7.467 (7.350-7.450); ABG PO2 77.6 mmHg (75.0-100.0); AaDO2 315.2 mmHg; COHb 0.2 % (0.5-1.5); MetHb 0.3 % (0.0-1.5); O2Hb 94.2 % (94.0-97.0); SITE, ABG Left Radial; VENT MODE, BG AC 60%; VT, ABG 500 mL
--- NOTE | 2020-08-22 09:00 | NUR ---
STEAM DRIER OPERATOR NOTES CALLED PHARMACY REGARDING GRANIX, AWAITING FOR THE MEDICATION.
[2020-08-22] MEDS: PANTOPRAZOLE 40 MG VIAL IV SCH (09:27)
[2020-08-22] MEDS: AZITHROMYCIN 500 MG in IV D5W 250 ML IV SCH (10:31)
[2020-08-22] MEDS: TBO-FILGRASTIM 480 MCG/0.8 ML ML SQ SCH (10:57)
[2020-08-22 12:07] LABS: *ANA ANTI-CENTROMERE B AB <0.2 AI (0.0-0.9); *ANA ANTI-DNA(DS) AB, QN <1 IU/mL (0-9); *ANA ANTI-JO-1 <0.2 AI (0.0-0.9); *ANA ANTICHROMATIN ANTIBODY <0.2 AI (0.0-0.9); *ANA RNP ANTIBODIES <0.2 AI (0.0-0.9); *ANA SJOGREN'S ANTI-SS-A <0.2 AI (0.0-0.9); *ANA SJOGREN'S ANTI-SS-B <0.2 AI (0.0-0.9); *ANAANTI-SCLERODERMA-70 AB <0.2 AI (0.0-0.9); *ANASMITH AB <0.2 AI (0.0-0.9)
[2020-08-22] MEDS ORDERED: diphenhydrAMINE HCL 50 MG/ML VIAL IV ONE (12:30)
[2020-08-22] MEDS ORDERED: ACETAMINOPHEN 325 MG TABLET PO ONE (12:30)
[2020-08-22] MEDS: ACETAMINOPHEN 650 MG/SUPP.RECT RC PRN (16:39)
--- NOTE | 2020-08-22 18:31 | NUR ---
RT END OF THE SHIFT REPORT PT. 79 Y OLD MALE. REC. IN ICU 0700 ORALLY INTUBATED, ETT #7.5@22 CM LIP LINE, ON VENT WITH NOTED SETTINGS, ALARMS ARE SET AND FUNCTIONAL. B/S RALES BILATERALLY SUX'D FOR MINIMAL AMT. BAR THICK SECRETIONS. BILATERALLY CHEST RISE NOTED VENT PLUGGED INTO RED OUTLET, AMBU BAG AT THE BEDSIDE. POST ABG NO CHANGES PER DR. CHAHAL, REMAIN ON FIO2 60%. TX'S GIVEN INLINE NO ADVERSE REACTION NOTED, VICE PRESIDENT AND PORTFOLIO MANAGER DONE HME CHANGED. NO CHANGES PT. REMAIN STABLE AND REPORT WILL PASS TO PM SHIFT. Addendum: 08/22/20 at 1834 by CALIN OGLESBY RT Amended: Links added.
[2020-08-22] MEDS: PROPOFOL 100 ML IV PRN (18:41)
--- NOTE | 2020-08-22 19:20 | NUR ---
REPORTED TO MD DATABASE SUPPORT DEVON YANG NP THAT SINCE 1819 PT IS TACHYCARDING AND TACHYPNEIC, THE TACHYPNEA WAS RESOLVED BY SEDATION BUT STILL TACHYCARDIC, WITH ORDER TO GIVE DILAUDID IV Q4H PRN AND STAT EKG NOTED AND CARRIED OUT
[2020-08-22] MEDS: HYDROMORPHONE 1 MG/1 ML DISP.SYRIN IV PRN (19:44)
--- NOTE | 2020-08-22 20:30 | NUR ---
PLATELET TRANSFUSION STARTED,TRANSFUSION VERIFICATION DONE, V/S CHECKED AND RECORDED, PT IS OBTUNDED AND SEDATED,
[2020-08-22] MEDS ORDERED: diphenhydrAMINE HCL 50 MG/ML VIAL ONE (21:47)
[2020-08-22] MEDS: FLUCONAZOLE IN NS 100 MG in PREMIX 1 EA IV SCH (21:59)
--- NOTE | 2020-08-22 22:00 | NUR ---
REPORTED TO OPERATING SYSTEMS PROGRAMMER MS DEVON YANG ENTRY ENGINEER THAT THE HR IS STILL ON 150'S AND HE IS RUNNING TEMP 102 NOW TYLENOL PRN IS GIVEN, SHE ORDER 500 ML NS BOLUS X1 NOW NOTED AND CARRIED OUT WILL CONT TO MONITOR THE PT
[2020-08-22] MEDS ORDERED: IV NS 0.9% 500 ML IV ONE (22:30)
[2020-08-22] MEDS ORDERED: PHENYLEPHRINE 10 MG/ML VIAL ONE (23:26)
[2020-08-22] MEDS ORDERED: PHENYLEPHRINE 50 MG in IV NS 0.9% 245 ML IV PRN (23:30)
--- NOTE | 2020-08-22 23:30 | NUR ---
DEVON YANG CAR RENTAL MANAGER AT BEDSIDE SEEN AND EXAMINE PT, PT BLOOD PRESSURE IS LOW SHE ORDER BATSHEVA PRESSORS DUE TO PT HR IS STILL HIGH, SHE ALSO ORDER TO GIVE ANOTHER 500 ML BOLUS NS AND GIVE DILAUDID ONCE WE STABILIZE THE BLOOD PRESSURE DUE TO HIGH HR NOTED AND CARRIED OUT
[2020-08-23] VITALS (58 sets, daily range): BP systolic 88–177; BP diastolic 43–87
[2020-08-23] MEDS ORDERED: IV NS 0.9% 500 ML IV ONE
[2020-08-23] MEDS: HYDROMORPHONE 1 MG/1 ML DISP.SYRIN IV PRN (00:01)
[2020-08-23] MEDS ORDERED: HYDROMORPHONE 1 MG/1 ML DISP.SYRIN IV PRN (00:30)
[2020-08-23] MEDS: ALBUTEROL FS 2.5 MG/0.5 ML VIAL.NEB NEB SCH ×4 (01:37→19:47)
[2020-08-23] MEDS: IPRATROPIUM NEB FS 0.5 MG/2.5 ML AMPUL.NEB NEB SCH ×4 (01:37→19:47)
[2020-08-23] MEDS: IV D5W 1,000 ML IV PRN ×2 (02:01→20:12)
[2020-08-23 04:30] LABS: BASOPHILS % (AUTO) 0.2 % (0.0-2.0); EOSINOPHILS % (AUTO) 0.2 % (0.0-6.0); HEMATOCRIT 24 % (39-51); HEMOGLOBIN 8.3 g/dL (13.5-17.5); LYMPHOCYTES # (AUTO) 0.1 K/uL (0.8-4.8); LYMPHOCYTES % (AUTO) 1.5 % (20.0-44.0); MEAN CORPUSCULAR HGB CONC 35 g/dl (31.0-36.0); MEAN CORPUSCULAR VOLUME 95 fL (80-96); MONOCYTES # (AUTO) 0.2 K/uL (0.1-1.30); MONOCYTES % (AUTO) 2.9 % (2.0-12.0); NEUTROPHILS # (AUTO) 5.7 K/uL (1.8-8.9); NEUTROPHILS % (AUTO) 95.2 % (43.0-81.0)
[2020-08-23 04:33] LABS: PLATELET COUNT (AUTO) 14 K/uL (150-450)
[2020-08-23 04:39] LABS: CALCIUM, SERUM 7.1 mg/dL (8.5-10.1); CARBON DIOXIDE 26 mmol/L (21-32); CHLORIDE 113 mmol/L (98-107); GLUCOSE 127 mg/dL (74-106); MAGNESIUM 2.1 mg/dL (1.8-2.4); PHOSPHORUS 3.4 mg/dL (2.5-4.9); SODIUM SERUM 147 mmol/L (136-145); UREA NITROGEN, BLOOD 57 mg/dL (7-18)
[2020-08-23] MEDS: VANCOMYCIN 1.25 GM in IV D5W 250 ML IV SCH (05:31)
[2020-08-23] MEDS: IV NS 0.9% 250 ML IV PRN (05:33)
--- NOTE | 2020-08-23 06:46 | NUR ---
REPORTED TO DEVON YANG PHOTORADIO OPERATOR ABOUT THE PLATELET OF 14 AND K+ 3 WITH ORDER TO TRANSFUSE 1 UNIT PLATELET AND KCL 40 MEQ VIA NGTUBE NOTED AND CARRIED OUT
--- NOTE | 2020-08-23 07:25 | NUR ---
RN OPENING NOTES RECEIVED PATIENT OBTUNDED AND ORALLY INTUBATED. TOLERATING SETTINGS OF AC 18 TV 500 FIO2 60% PEEP 0. ST TO SR ON BEDSIDE MONITOR. OGT CLAMPED. BENITA PORTACATH, LAC G20 AND PB PICC WITH D5W AT 60ML/HR. CVP IS 6. ANTOINE DRAINING BY GRAVITY FOR 24 HR COLLECTION. SAFETY CHECKS IN PLACE. WILL CONTINUE TO MONITOR.
[2020-08-23] MEDS ORDERED: POTASSIUM CHLORIDE 20 MEQ POWDER PACKET GT ONE (07:30)
[2020-08-23] MEDS ORDERED: POTASSIUM CHLORIDE 20 MEQ POWDER PACKET GT SCH (07:30)
[2020-08-23] MEDS: POTASSIUM CL. PREMIX PERIPHER. 50 ML IV SCH ×5 (08:14→11:23)
[2020-08-23] MEDS: MEROPENEM 500 MG in IV NS 0.9% 100 ML IV SCH ×2 (08:14→20:55)
[2020-08-23] MEDS: LEVOTHYROXINE SODIUM 137 MCG TABLET PO SCH (08:18)
--- NOTE | 2020-08-23 09:00 | NUR ---
RN NOTE 24HR URINE COLLECTION COMPLETED AND SENT FOR PROTEIN ELECTROPHORESIS.
[2020-08-23 09:07] LABS: ABG OXYGEN SATURATION 94.1 % (92.0-98.5); ABG PH 7.425 (7.350-7.450); COHb 0.3 % (0.5-1.5); MetHb 0.1 % (0.0-1.5); O2Hb 93.7 % (94.0-97.0); PEEP,BG 0 cm H2O; SITE, ABG Right Radial; VT, ABG 500 mL
[2020-08-23] MEDS: PANTOPRAZOLE 40 MG VIAL IV SCH (09:15)
[2020-08-23] MEDS: AZITHROMYCIN 500 MG in IV D5W 250 ML IV SCH (10:39)
[2020-08-23] MEDS: PROPOFOL 100 ML IV PRN ×2 (10:39→18:10)
--- NOTE | 2020-08-23 11:00 | NUR ---
RN NOTE RESUMED PROPOFOL PER DR CHAHAL TO 20MCG/KG/HR SINCE PT IS HYPERTENSIVE, TACHYCARDIC, TACHYPNEIC AND APPEARS RESTLESS.
[2020-08-23 11:55] LABS: LYMPHOCYTES % (MANUAL) 3 % (16-48); MONOCYTES % (MANUAL) 5 % (0-11.0); NEUTROPHILS % (MANUAL) 92 (42-76)
[2020-08-23] MEDS ORDERED: ACETAMINOPHEN 325 MG TABLET PO ONE (12:00)
[2020-08-23] MEDS ORDERED: JEVITY 1.2 CAL 1,000 ML BOTTLE GT PRN (12:00)
[2020-08-23] MEDS ORDERED: diphenhydrAMINE HCL 50 MG/ML VIAL IV ONE (12:00)
[2020-08-23 12:36] LABS: URINE TOTAL PROTEIN 151.5 mg/dL (0-11.9)
--- NOTE | 2020-08-23 16:30 | NUR ---
RN NOTE PATIENT COMPLETED ONE UNIT OF PLATELET WITH NO ADVERSE REACTIONS.
--- NOTE | 2020-08-23 19:01 | NUR ---
RN CLOSING NOTES PATIENT IS SEDATED AND ORALLY INTUBATED. TOLERATING SETTINGS OF AC 18 TV 500 FIO2 55% PEEP 0. ST TO SR WITH BBB ON BEDSIDE MONITOR. OGT CONNECTED TO JEVITY AT 10ML/HR BENITA PORTACATH, LAC G20 AND PB PICC WITH D5W AT 60ML/HR AND PROPOFOL AT 20MCG/KG/HR. CVP IS AT 6. ANTOINE DRAINING BY GRAVITY.SAFETY CHECKS IN PLACE. WILL ENDORSE TO NIGHT RN FOR CONTINUITY OF CARE.
--- NOTE | 2020-08-23 19:40 | NUR ---
RN NOTES RECEIVED PATIENT SEDATED ON BED WITH ETT 7.5 AND 23 CM AT LIPLINE. SR/ST ON MONITOR WITH BBB. NO ACUTE RESPIRATORY DISTRESS. VENT SETTING TOELRATED WELL. SATURATION 98%. LOW GRADE FEVER 100 DEGREE FHARENHEIGHT PRESENT ON COOLING BLANKET IN PLACED. PATIENT IS WARM TO TOUCH. RESPONSIVE TO TACTILE STIMULI. WITH DIPRIVAN @ 20 MCG/KG/MIN. PATIENT REMAINED CALMED. IV SITE ON PB PICC KARLA AND LAC INTACT AND PATENT RUNNING WITH IVF D5W @ 60 ML/HR. BENITA DON CATH AND RAC IV LINE OCCLUDED. PATIENT ON CVP WITH THE SCORE OF 7 LABELED AND ZEROED. ANTOINE CATH DRAINED VIA GRAVITY. KEPT PT CLEAN AND COMFORTABLE IN BED. WILL CONTINUE TO MONITOR.
[2020-08-23] MEDS ORDERED: LEVOFLOXACIN 500 MG /D5W 100ML 500 MG in PREMIX 1 EA IV SCH (20:30)
[2020-08-23] MEDS: FLUCONAZOLE IN NS 100 MG in PREMIX 1 EA IV SCH (21:31)
[2020-08-23] MEDS ORDERED: LEVOFLOXACIN 750 MG /D5W 150ML 750 MG in PREMIX 1 EA IV SCH (22:00)
[2020-08-24] VITALS (23 sets, daily range): BP systolic 103–153; BP diastolic 51–70
[2020-08-24] MEDS: IPRATROPIUM NEB FS 0.5 MG/2.5 ML AMPUL.NEB NEB SCH ×4 (01:19→19:50)
[2020-08-24] MEDS: ALBUTEROL FS 2.5 MG/0.5 ML VIAL.NEB NEB SCH ×4 (01:19→19:50)
[2020-08-24] MEDS: PROPOFOL 100 ML IV PRN ×3 (03:39→20:33)
[2020-08-24 04:24] LABS: BASOPHILS % (AUTO) 0.2 % (0.0-2.0); EOSINOPHILS % (AUTO) 0.1 % (0.0-6.0); HEMATOCRIT 23 % (39-51); LYMPHOCYTES # (AUTO) 0.1 K/uL (0.8-4.8); MEAN CORPUSCULAR HGB CONC 35 g/dl (31.0-36.0); MEAN CORPUSCULAR VOLUME 95 fL (80-96); MONOCYTES # (AUTO) 0.2 K/uL (0.1-1.30); MONOCYTES % (AUTO) 3.3 % (2.0-12.0); NEUTROPHILS # (AUTO) 5.8 K/uL (1.8-8.9); NEUTROPHILS % (AUTO) 94.4 % (43.0-81.0); RED BLOOD CELL COUNT(AUTO) 2.44 MIL/uL (4.5-6.0); WHITE BLOOD COUNT (AUTO) 6.1 K/uL (4.3-11.0)
[2020-08-24 04:34] LABS: CALCIUM, SERUM 7.3 mg/dL (8.5-10.1); CARBON DIOXIDE 27 mmol/L (21-32); CHLORIDE 111 mmol/L (98-107); CREATININE 1.6 mg/dL (0.6-1.3); GLUCOSE 134 mg/dL (74-106); PHOSPHORUS 2.5 mg/dL (2.5-4.9); POTASSIUM 3.3 mmol/L (3.5-5.1); SODIUM SERUM 146 mmol/L (136-145); UREA NITROGEN, BLOOD 55 mg/dL (7-18)
[2020-08-24 05:03] LABS: PLATELET COUNT (AUTO) 13 K/uL (150-450)
--- NOTE | 2020-08-24 05:31 | NUR ---
RN NOTES RECEIVED A CALL FROM LAB CRITICAL RESULT OF PLATELET =13., INFORMED BANK CASHIER DEVON BOONE WITH ORDER OF I UNIT OF PLATELET TODAY, NOTED AND CARRIED OUT ORDER.
[2020-08-24 05:32] LABS: D-DIMER 5.21 mg/L(FEU (0.17-0.50)
[2020-08-24] MEDS: VANCOMYCIN 1.25 GM in IV D5W 250 ML IV SCH (05:57)
[2020-08-24 06:16] LABS: BAND % (MANUAL) 3 % (0.0-5.0); LYMPHOCYTES % (MANUAL) 3 % (16-48); METAMYELOCYTES % 1 % (0-0); MONOCYTES % (MANUAL) 4 % (0-11.0); MYELOCYTES % 1 % (0-0); NEUTROPHILS % (MANUAL) 88 (42-76)
[2020-08-24] MEDS: IV NS 0.9% 250 ML IV PRN (06:17)
[2020-08-24] MEDS ORDERED: IV NS 0.9% 500 ML IV ONE (06:30)
[2020-08-24] MEDS ORDERED: IV NS 0.9% 500 ML IV PRN (07:00)
--- NOTE | 2020-08-24 07:30 | NUR ---
RN OPENING NOTES RECEIVED PATIENT SEDATED ON BED WITH ETT 7.5 AT 23 CM LIPLINE. SR 90s ON MONITOR WITH BBB. NO ACUTE RESP DISTRESS OR SOB NOTED, BREATHING EVEN AND UNLABORED, SPO2 98%. LOW GRADE FEVER 99.9 F CURRENTLY, PT COOLING BLANKET IN PLACE. PT IS WARM TO TOUCH AND RESPONSIVE TO TACTILE STIMULI. PT HAS PB PICC FLUSHED, PATENT AND INTACT, CURRENTLY RUNNING DIPRIVAN @ 20 MCG/KG/MIN, PT IS CALM. LAC INTACT AND PATENT RUNNING WITH IVF D5W @ 60 ML/HR. BENITA DON CATH NOT PATENT/OCCLUDED. PATIENT ON CVP WITH THE SCORE OF 9-10 LABELED AND ZEROED. ANTOINE CATH PATENT AND DRAINING CLEAR YELLOW URINE VIA GRAVITY. KEPT PT CLEAN AND COMFORTABLE IN BED. WILL CONTINUE TO MONITOR. Addendum: 08/24/20 at 1016 by LIZBETH LUCERO RN PT JEVITY 1.2 RUNNING @ 20 ML/HR, 60cc RESIDUALS NOTED, TOLERATING WELL. INCREASED FEED TO GOAL RATE OF 30 ML/HR Addendum: 08/24/20 at 1119 by LIZBETH LUCERO RN PT BILAT SOFT WRIST RESTRAINTS IN PLACE, BILAT CMS INTACT
--- NOTE | 2020-08-24 08:00 | NUR ---
RN NOTE K+ 3.3, DR FLANAGAN AWARE
[2020-08-24] MEDS: PANTOPRAZOLE 40 MG VIAL IV SCH (08:24)
[2020-08-24] MEDS: MEROPENEM 500 MG in IV NS 0.9% 100 ML IV SCH ×2 (08:25→20:00)
[2020-08-24 08:33] LABS: ABG BASE EXCESS 1.6 mmol/L; ABG OXYGEN SATURATION 93.5 % (92.0-98.5); ABG PCO2 35.9 mmHg (35.0-45.0); ABG PH 7.465 (7.350-7.450); ABG PO2 71.2 mmHg (75.0-100.0); AaDO2 172.7 mmHg; COHb 0.2 % (0.5-1.5); MetHb 0.2 % (0.0-1.5); O2Hb 93.1 % (94.0-97.0); PEEP,BG 0 cm H2O; SITE, ABG Right Radial; VT, ABG 500 mL
[2020-08-24] MEDS: LEVOTHYROXINE SODIUM 137 MCG TABLET PO SCH (08:54)
[2020-08-24] MEDS: POTASSIUM CL. PREMIX PERIPHER. 50 ML IV SCH ×4 (09:39→13:34)
--- NOTE | 2020-08-24 11:00 | NUR ---
RN NOTE SEDATION VACATION SEDATION VACATION STARTED AT 0930. PT ABLE TO OPEN EYES SPONTANEOUSLY, ABLE TO FOLLOW COMMANDS ONLY WITH EYE OPENING AND CLOSING. UNABLE TO SQUEEZE HANDS BILATERALLY. PT TOLERATING WELL. VITALS CONSISTENT WITH VITALS PRIOR TO BEGINNING OF SED VACATION. PT SEEMS TO BE TOLERATING WELL AND IN NO ACUTE DISTRESS. SPO2 95%. WILL CONT TO MONITOR
--- NOTE | 2020-08-24 11:35 | NUR ---
RN NOTE DIPRIVAN RESTARTED PER PROTOCOL D/T PT LABORED BREATHING AND BP OF 186/77. SEDATION VACATION TOLERATED FOR 1HR AND 20MIN. WILL CONT TO MONITOR PT STATUS
--- NOTE | 2020-08-24 12:00 | NUR ---
RN NOTE PT BP 135/58, BREATHING UNLABORED AND EVEN, SPO2 96%, NO SIGNS OF DISTRESS. PT RESTING COMFORTABLY
[2020-08-24] MEDS: ACETAMINOPHEN 325 MG TABLET PO PRN (12:02)
--- NOTE | 2020-08-24 12:06 | NUR ---
RN NOTE PT TEMP OF 100.5 F CURRENTLY. TYLENOL 650MG GIVEN AND COOLING MEASURES IN PLACE, WILL CONT TO MONITOR
--- NOTE | 2020-08-24 15:00 | NUR ---
RN NOTE CALLED RAMBO AT [facility]LOOD [facility]ANKN TO INQUIRE IF PT'S PLTs WERE DELIVERED BY [facility], RAMBO STATED THEY WERE NOT HERE YET AND THAT SHE WOULD CALL WHEN READY
[2020-08-24] MEDS: IV D5W 1,000 ML IV PRN (15:19)
--- NOTE | 2020-08-24 18:30 | NUR ---
RN NOTE PT REPORT GIVEN TO DAISY THAYER AT [facility]
--- NOTE | 2020-08-24 19:00 | NUR ---
RN NOTE PT ON VENT SETTINGS PER MD ORDER, TOLERATEING WELL, NO SIGNS OF RESP DISTRESS OR SOB, SPO2 98%. PT SEDATED AND COMFORTABLE ON DIPRIVAN 20 MCG/KG/MIN. NO CHANGES TO PT STATUS DURING SHIFT. PT IS STABLE AND AWAITING TRANSFER TO [facility]. ALL PT SAFETY PRECAUTIONS IN PLACE. MALORIE ENDORSED TO EFFERVESCENT SALTS COMPOUNDER RN
--- NOTE | 2020-08-24 19:35 | NUR ---
Received report and patient remains sedated on Diprivan gtt at 20 mcg and intubated to mechanical vent on same settings.No acute respiratory distress noted.Feverish 99.5 cooling measures done.SR with BBB.Hemodynamically stable.Left NGT clamped and patent.FC to gravity.IVF D5W infusing at 60 ml/hr via rosalba picc line site intact. Turned and repositioned.Awaiting transfer to [facility].
--- NOTE | 2020-08-24 19:52 | NUR ---
Called Roxie at [facility] to follow up regarding Platelet availability.Per Roxie still not available. She said to call ICU when available.
--- NOTE | 2020-08-24 20:10 | NUR ---
[facility] here and patient angelique Banks.Report given to Ambulance transport nurse. Addendum: 08/24/20 at 2159 by JEOVANY DEAN RN Transport Nurse name Jessica.
--- NOTE | 2020-08-24 21:25 | NUR ---
Patient left in stable condition via gurney accompanied by [facility] Personnel x 4 and patient son Darren.
--- NOTE | 2020-08-24 21:50 | NUR ---
Patient belongings 1 green short with 5 keys left behind.Called son Darren tel#[phone]. .He said [facility] will come and pick it up
--- NOTE | 2020-08-24 21:52 | NUR ---
Called Natasha at [facility] to cancel platelet 1 unit.Patient already transferred to [facility].
--- NOTE | 2020-08-24 22:18 | NUR ---
Called daughter in law Marinelli tel#[phone] to come and pick and shovel worker patient belongings.She said she will come to pick-up tomorrow.
== END 2020-08-24 21:25 | disposition short-term general hospital (02) | DRG 870 ==
LOC: ER 02:28 → TELE1 04:40 → ICU 07:42
PROVIDERS: ADMIT Internal Medicine; ATTEND Internal Medicine
PROC: 5A1955Z Respiratory Ventilation, Greater than 96 Consecutive Hours (ICD-10-PCS; principal; 2020-08-19)
PROC: 5A09357 Assistance with Respiratory Ventilation, Less than 24 Consecutive Hours, Continuous Positive Airway Pressure (ICD-10-PCS; 2020-08-19)
PROC: 30233R1 Transfusion of Nonautologous Platelets into Peripheral Vein, Percutaneous Approach (ICD-10-PCS; 2020-08-20)
PROC: 05H533Z Insertion of Infusion Device into Right Subclavian Vein, Percutaneous Approach (ICD-10-PCS; 2020-08-20)
PROC: B546ZZA Ultrasonography of Right Subclavian Vein, Guidance (ICD-10-PCS; 2020-08-20)
PROC: 02HV33Z Insertion of Infusion Device into Superior Vena Cava, Percutaneous Approach (ICD-10-PCS; 2020-08-22)
PROC: B548ZZA Ultrasonography of Superior Vena Cava, Guidance (ICD-10-PCS; 2020-08-22)
DX: A41.9 Sepsis, unspecified organism (principal); J96.01 Acute respiratory failure with hypoxia; G93.41 Metabolic encephalopathy; J96.02 Acute respiratory failure with hypercapnia; N17.0 Acute kidney failure with tubular necrosis; R65.21 Severe sepsis with septic shock; J18.9 Pneumonia, unspecified organism; D61.810 Antineoplastic chemotherapy induced pancytopenia; K83.1 Obstruction of bile duct; T80.211A Bloodstream infection due to central venous catheter, initial encounter; C79.51 Secondary malignant neoplasm of bone; C34.90 Malignant neoplasm of unspecified part of unspecified bronchus or lung; N17.9 Acute kidney failure, unspecified; D84.9 Immunodeficiency, unspecified; E87.5 Hyperkalemia; I25.10 Atherosclerotic heart disease of native coronary artery without angina pectoris; Z20.822 Contact with and (suspected) exposure to COVID-19; N18.9 Chronic kidney disease, unspecified; Z95.0 Presence of cardiac pacemaker; Z87.891 Personal history of nicotine dependence; Z90.49 Acquired absence of other specified parts of digestive tract; F31.9 Bipolar disorder, unspecified; T45.1X5A Adverse effect of antineoplastic and immunosuppressive drugs, initial encounter; R74.01 Elevation of levels of liver transaminase levels; E80.6 Other disorders of bilirubin metabolism; E88.09 Other disorders of plasma-protein metabolism, not elsewhere classified; R16.1 Splenomegaly, not elsewhere classified; F20.9 Schizophrenia, unspecified; N41.9 Inflammatory disease of prostate, unspecified; J43.2 Centrilobular emphysema; D70.9 Neutropenia, unspecified; K76.0 Fatty (change of) liver, not elsewhere classified; I12.9 Hypertensive chronic kidney disease with stage 1 through stage 4 chronic kidney disease, or unspecified chronic kidney disease; Y84.8 Other medical procedures as the cause of abnormal reaction of the patient, or of later complication, without mention of misadventure at the time of the procedure; Y92.009 Unspecified place in unspecified non-institutional (private) residence as the place of occurrence of the external cause
CPT/HCPCS: 31720; 36415; 36600; 70450-TC; 71045-TC; 76700-TC; 80048-TC; 80053-TC; 80061-TC; 80074; 80076-TC; 80202-TC; 81001; 82378; 82533; 82550-TC; 82570-TC; 82728-TC; 82784; 82803-TC; 82962-TC; 83540-TC; 83605-TC; 83690-TC; 83735-TC; 83880; 84100-TC; 84153-TC; 84154-TC; 84155; 84155-TC; 84165; 84300-TC; 84443-TC; 84484-TC; 84550-TC; 85025-TC; 85385-TC; 85396; 85730-TC; 86140-TC; 86225; 86235; 86334; 86431-TC; 86706; 86803; 86850-TC; 87040-TC; 87070-TC; 87081-TC; 87086-TC; 87186-TC; 87281; 87340; 93307-TC; 94002-TC; 94003-TC; 94760-TC; 94799-TC; 99082-TC; A4216; A4349; C9113; C9803; G0378; G0480; J0330; J0456; J1170; J1200; J1447; J1450; J1720; J1815; J1956; J2060; J2185; J2310; J2370; J2405; J2543; J3370; J3480; J3490; J7030; J7040; J7042; J7050; J7060; J7070; P9034; Q9967; U0003